=== PATIENT | female | born 2005 | race Caucasian/White ===

== ENCOUNTER 2024-12-30 07:46 | Outpatient (REF) | payer OTHER, SELFPAY ==
--- NOTE | ~2024-12-30 | US_ITS ---
CLINICAL HISTORY: CHECK IUD PLACEMENT Ultrasound pelvis transabdominal and transvaginal. COMPARISON: None Technique: Real time sonographic imaging, including color-flow imaging, was performed by the swatch folder. Multiple communications representative static images were saved for review. FINDINGS: Anteverted uterus measures 7.4 x 2.7 x 4.1 cm. No uterine fibroids identified. Endometrium: 3 mm, normal. IUD appropriately positioned within the endometrial canal in the uterine fundus and body. Right ovary appears normal and measures 4.0 x 2.1 x 2.4 cm. Normal color Doppler. No right adnexal mass identified. Normal appearing physiologic follicles/cysts. Left ovary appears normal and measures 3.2 x 2.3 x 1.7 cm. Normal color Doppler. No left adnexal mass identified. Normal appearing physiologic follicles/cysts. No free fluid identified in the pelvic cul-de-sac. IMPRESSION: 1. IUD is appropriately positioned within the canal in the uterine fundus and body. This document has been electronically signed by: Logan Ramírez MD on 12/30/2024 21:03:10
--- OUTSIDE RECORDS SUMMARY | 2024-12-30 07:55 | XMS_ITS | Clinical Summary ---
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 Name Role Phone Unavailable Primary Care Provider Unavailabl e Social History Tobacco Use Types Packs/Day Years Used Date Smoking Tobacco: Never Assessed Comments Unknown Sex and Gender Information Value Date Recorded Sex Assigned at Not on file Legal Sex Female 9:12 AM EDT Gender Identity Not on file Sexual Orientation Not on file Plan of Treatment Health Maintenance Due Date Last Done Comments Chlamydia and Gonorrhea Screening 2004 Depression Screening 2004 HIV Screening 2004 SDOH Screening 2004 Alcohol/Substance Use Screening 2016 Tobacco Screening 2016 Family Planning (PISQ) 12/09/2019 HPV Vaccines (1 - 3-dose series) 12/09/2019 Hepatitis C Screening 2022 DTaP/Tdap/Td Vaccines (1 - Tdap) 12/09/2023 Hepatitis B Vaccines (1 of 3 - 19+ 3-dose series) 12/09/2023 COVID-19 Vaccine (1 - 2023-2 5 season) 2024 Influenza Vaccine (#1) 2024 Zoster Vaccines (1 of 2) 2054 RSV Patients and Pa tients Aged 60 years or older (1 - 1-dose 75+ series) 12/09/2079 HIB Vaccines Aged Out No longer eligi ble based on patient's age to complete this topic Hepatitis A Vaccines Aged Out No long er eligible based on patient's age to complete this topic IPV Vaccines Aged Out No longer eligi ble based on patient's age to complete this topic Meningococcal Vaccine Aged Out No oscar radha eligible based on patient's age to complete this topic Pneumococcal Vaccine: Pediat rics (0 to 5 Years) and At-Risk Patients (6 to 49) Years) Aged Out No longer eligible b ased on patient's age to complete this topic RSV under 20 months Aged Out No longe r eligible based on patient's age to complete this topic Rotavirus Vaccines Aged Out No longer eligible based on patient's age to complete this topic Insurance [facility] STANDARD
== END 2024-12-30 07:47 | disposition home or self-care (01) ==
LOC: HO.UMASIMG 07:46
PROVIDERS: Visit Provider Nurse Practitioner Women's Health
DX: Z30.431 Encounter for routine checking of intrauterine contraceptive device (principal)
CPT/HCPCS: 76830; 76856

== ENCOUNTER → 2024-12-30 11:30 | Outpatient (BNV) | payer MEDICAID, SELFPAY | PROVIDERS: Visit Provider Radiology Diagnostic Radiology | DX: Z97.5 Presence of (intrauterine) contraceptive device (principal) | CPT/HCPCS: 76830; 76856 ==